=== PATIENT | male | born 1985 | race Caucasian/White ===

== ENCOUNTER 2017-03-09 10:21 | Emergency (ER) | payer BC, OTHER ==
[2017-03-09] MEDS ORDERED: ONDANSETRON 4 MG/2 ML VIAL IVP STA (11:45)
[2017-03-09] MEDS ORDERED: HYDROmorphone 1 MG/ML SYRINGE IVP STA (11:45)
[2017-03-09] MEDS ORDERED: ONDANSETRON 4 MG/2 ML VIAL ONE (11:48)
[2017-03-09] MEDS ORDERED: HYDROmorphone 1 MG/ML SYRINGE ONE (11:48)
== END 2017-03-09 14:31 | disposition home or self-care (01) ==
DX: K52.9 Noninfective gastroenteritis and colitis, unspecified (principal); K57.30 Diverticulosis of large intestine without perforation or abscess without bleeding; R16.2 Hepatomegaly with splenomegaly, not elsewhere classified; K21.9 Gastro-esophageal reflux disease without esophagitis; K25.9 Gastric ulcer, unspecified as acute or chronic, without hemorrhage or perforation; F32.9 Major depressive disorder, single episode, unspecified; Z87.891 Personal history of nicotine dependence
CPT/HCPCS: 36415; 74176; 80053; 81003; 83690; 85027; 96374; 96375; 99283; 99284; J1170

== ENCOUNTER 2017-08-21 23:21 | Emergency (ER) | payer BC ==
[2017-08-21 23:28] VITALS: BP 137/80
--- NOTE | 2017-08-22 00:36 | ED Physician Documentation ---
PD HPI FEVER - Stated complaint Stated Complaint: FEVER - Chief complaint Chief Complaint: Fever - History obtained from History obtained from: Patient - History of Present Illness Timing - onset: How many days ago (3) Timing duration: Days Timing details: Abrupt onset, Waxing and waning Associated symptoms: Chills, Sweats. No: Ear pain, Nasal congestion, Rhinorrhea , Sore throat, Dry cough, Productive cough, Dyspnea, Abdominal pain, NVD Recently seen: Not recently seen - Additional information Additional information: fever x three days, Tmax 105.6. frontal MORALES, generalized myalgias and malaise Review of Systems Constitutional: reports: Fever, Chills, Myalgias, Sweats Nose: reports: Reviewed and negative Throat: denies: Sore throat Respiratory: reports: Reviewed and negative GI: reports: Reviewed and negative Skin: denies: Rash PD PAST MEDICAL HISTORY - Past Medical History Past Medical History: Yes Cardiovascular: None Respiratory: None Neuro: None Endocrine/Autoimmune: None GI: GERD, Ulcers : None HEENT: None Psych: None, Depression Musculoskeletal: None Derm: None - Past Surgical History Past Surgical History: Yes General: Colonoscopy, EGD Ortho: Other - Present Medications Home Medications: Ambulatory Orders Medication Instructions Recorded Confirmed Anti-Depresant 1 tab PO DAILY 03/09/17 Ondansetron Odt [Zofran] 4 mg TL Q6H PRN #10 tablet 03/09/17 - Allergies Allergies/Adverse Reactions: Allergies Allergy/AdvReac Type Severity Reaction Status Date / Time azithromycin [From Zithromax] Allergy Mild Hives Verified 08/21/17 23:28 guaifenesin [From Mucinex] Allergy Mild Hives Verified 08/21/17 23:28 - Social History Does the pt smoke?: No Smoking Status: Never smoker Does the pt drink ETOH?: No Does the pt have substance abuse?: No - Immunizations Immunizations are current?: No Immunizations: TDAP current <10years - POLST Patient has POLST: No PD ED PE NORMAL - Vitals Vital signs reviewed: Yes - General General: Alert and oriented X 3, No acute distress, Well developed/nourished - HEENT HEENT: Ears normal, Moist mucous membranes, Pharynx benign - Neck Neck: Supple, no meningeal sign - Cardiac Cardiac: RRR, No murmur - Respiratory Respiratory: No respiratory distress, Clear bilaterally - Abdomen Abdomen: Soft, Non tender - Derm Derm: Normal color, Warm and dry, No rash Results - Vitals Vitals: Oxygen O2 Source Room air PD MEDICAL DECISION MAKING - ED course Complexity details: considered differential, d/w patient Departure - Departure Disposition: 01 Home, Self Care Clinical Impression: Febrile disorder Condition: Good Instructions: ED Fever Control, ED Viral Syndrome Comments: I suspect you might have influenza. However, as we discussed, we did not test you for this tonight because even if the result were positive, by CDC (Center for Disease Control) recommendations, you would not benefit from anti-influenza medication; you are as likely to get better without this medication. Please return if you get worse. Discharge Date/Time: 08/22/17 00:55
== END 2017-08-22 00:55 | disposition home or self-care (01) ==
LOC: ED 23:21
DX: R50.9 Fever, unspecified (principal); K21.9 Gastro-esophageal reflux disease without esophagitis; Z87.11 Personal history of peptic ulcer disease
CPT/HCPCS: 99282; 99283

== ENCOUNTER 2019-10-08 08:35 | Outpatient (CLI) | payer BC ==
[2019-10-08 15:20] LABS: BASOPHILS # (AUTO) 0.1 10^3/uL (0.0-0.1); BASOPHILS % (AUTO) 1.2 %; EOSINOPHILS % (AUTO) 0.6 %; LYMPHOCYTES # (AUTO) 1.5 10^3/uL (1.5-3.5); LYMPHOCYTES % (AUTO) 28.4 %; MEAN CORPUSCULAR HEMOGLOBIN 32.5 pg (27.0-31.0); MEAN CORPUSCULAR VOLUME 92.7 fL (80.0-94.0); MEAN PLATELET VOLUME 10.9 fL (7.4-11.4); MONOCYTES # (AUTO) 0.4 10^3/uL (0.0-1.0); MONOCYTES % (AUTO) 6.9 %; NEUTROPHILS # (AUTO) 3.2 10^3/uL (1.5-6.6); NEUTROPHILS % (AUTO) 62.7 %; PLT - PLATELET COUNT 190 10^3/uL (130-450); RED BLOOD COUNT 4.93 10^6/uL (4.70-6.10); RED CELL DISTRIBUTION WIDTH 12.1 % (12.0-15.0); WHITE BLOOD COUNT 5.1 x10^3/uL (4.8-10.8)
[2019-10-08 16:01] LABS: ALBUMIN 4.7 g/dL (3.2-5.5); ALBUMIN/GLOBULIN RATIO 1.8 (1.0-2.2); ALKALINE PHOSPHATASE 66 IU/L (42-121); ALT ALANINE AMINOTRANSFERASE 21 IU/L (10-60); AST ASPARTATE AMINOTRANSFERASE 20 IU/L (10-42); BILIRUBIN,TOTAL 0.6 mg/dL (0.2-1.0); BUN - BLOOD UREA NITROGEN 13 mg/dL (6-20); CALCIUM 9.3 mg/dL (8.5-10.3); CARBON DIOXIDE - CO2 28 mmol/L (21-32); CHLORIDE 104 mmol/L (101-111); CHOL/HDL RATIO 4.2 (<5.0); CHOLESTEROL 181 mg/dL; CREATININE 0.7 mg/dL (0.6-1.2); GFR - MDRD 131 (>89); GLUCOSE 87 mg/dL (70-100); HDL CHOLESTEROL 43 mg/dL; LDL CHOLESTEROL,CALCULATED 97 mg/dL; LDL/HDL RATIO 2.3 (<3.6); SODIUM 139 mmol/L (135-145); TOTAL PROTEIN 7.3 g/dL (6.7-8.2); URIC ACID 6.6 mg/dL (2.6-7.2); VLDL CHOLESTEROL 41 mg/dL
[2019-10-08 16:09] LABS: CRP - C-REACTIVE PROTEIN < 1.0 mg/dL (0-1.0)
[2019-10-08 20:00] LABS: RHEUMATOID FACTOR NEGATIVE (Negative)
[2019-10-10 11:22] LABS: ANA SCREEN NEGATIVE (NEGATIVE)
== END 2019-10-08 23:59 | disposition home or self-care (01) ==
LOC: LAB.WCP 08:35
PROVIDERS: ATTEND Physician Assistant Medical
DX: Z00.00 Encounter for general adult medical examination without abnormal findings (principal); M25.50 Pain in unspecified joint
CPT/HCPCS: 36415; 80053; 80061; 83721; 84443; 84550; 85025; 85651; 86038; 86140; 86200; 86430

== ENCOUNTER 2020-09-22 18:46 | Emergency (ER) | payer OTHER ==
--- NOTE | 2020-09-22 19:54 | XRAY Report ---
PROCEDURE: Ribs w/PA Chest LT INDICATIONS: L rib pain after hitting a storage container at wo TECHNIQUE: 2 views of the left ribs were acquired, along with a single view chest. COMPARISON: Chest radiographs 04/07/2013 FINDINGS: Surgical changes and devices: None. Bones and chest wall: No acute displaced fractures or dislocations. No suspicious bony lesions. Ov erlying soft tissues appear unremarkable. Lungs and pleura: No pleural effusions or pneumothorax. Lungs appear clear. Mediastinum: Mediastinal contours appear normal. Heart size is normal. IMPRESSION: No acute displaced rib fracture. No pleural effusion or pneumothorax. Reviewed by: Salomon Al MD on 09/22/2020 7:53 PM PST Approved by: Salomon Al MD on 09/22/2020 7:53 PM PST Station ID: [id number]
--- NOTE | 2020-09-22 20:10 | ED Physician Documentation ---
History of Present Illness - Stated complaint Stated Complaint: LT RIB INJ - Chief complaint Chief Complaint: Trauma Ch/Bk - History obtained from History obtained from: Patient - History of Present Illness Timing: How many days ago (8) Pain level max: 5 Pain level now: 5 - Additonal information Additional information: 35-year-old male presents the emergency department stating that he injured his left ribs at work approximately 8 days ago. Worse with movement, better with rest. Motrin and Tylenol offering little relief. No cough. No fevers. Review of Systems Constitutional: denies: Fever, Chills GI: denies: Vomiting, Diarrhea Skin: denies: Rash Musculoskeletal: denies: Neck pain, Back pain Neurologic: denies: Headache PD PAST MEDICAL HISTORY - Past Medical History Cardiovascular: None Respiratory: None Endocrine/Autoimmune: None GI: GERD, Ulcers : None HEENT: None Psych: None, Depression Musculoskeletal: None Derm: None - Past Surgical History Past Surgical History: Yes General: Colonoscopy, EGD Ortho: Other - Present Medications Home Medications: Ambulatory Orders Medication Instructions Recorded Confirmed Anti-Depresant 1 tab PO DAILY 03/09/17 Ondansetron Odt [Zofran] 4 mg TL Q6H PRN #10 tablet 03/09/17 HYDROcod/ACETAM 5/325 [[place] 5/325] 1 - 2 ea PO Q6H PRN #14 tablet 09/22/20 Ibuprofen [Motrin] 800 mg PO Q8H PRN #30 tablet 09/22/20 Lidocaine Patch 5% [Lidoderm Patch] 1 patch TOP DAILY PRN #10 patch 09/22/20 - Allergies Allergies/Adverse Reactions: Allergies Allergy/AdvReac Type Severity Reaction Status Date / Time azithromycin [From Zithromax] Allergy Mild Hives Verified 09/22/20 18:50 guaifenesin [From Mucinex] Allergy Mild Hives Verified 09/22/20 18:50 - Social History Does the pt smoke?: No Smoking Status: Never smoker Does the pt drink ETOH?: No Does the pt have substance abuse?: No - Immunizations Immunizations are current?: No Immunizations: TDAP current <10years - POLST Patient has POLST: No PD ED PE NORMAL - Vitals Vital signs reviewed: Yes - General General: Alert and oriented X 3, No acute distress - HEENT HEENT: Moist mucous membranes - Neck Neck: Supple, no meningeal sign - Cardiac Cardiac: RRR - Respiratory Respiratory: No respiratory distress, Clear bilaterally - Abdomen Abdomen: Soft, Non tender, Non distended - Derm Derm: Warm and dry - Neuro Neuro: Alert and oriented X 3 - Psych Psych: Normal mood, Normal affect - Free text exam Free text exam: Tender to palpation over the left ribs, midaxillary line, approximately ribs 4 through 7. Also tender to palpation over the anterior aspect of the ribs, costochondral junction, approximately ribs 5 through 7. No swelling. No ecchymosis. No crepitus Results - Vitals Vitals: Vital Signs - 24 hr 09/22/20 09/22/20 18:50 20:25 Temperature 36.6 C 36.7 C Heart Rate 100 70 Respiratory 16 14 Rate Blood Pressure 140/100 H 138/97 H O2 Saturation 98 97 Oxygen O2 Source Room air - Rads (name of study) L ribs xray Radiology: Prelim report reviewed, EMP read contemporaneously, See rad report (no displaced rib fracture. no ptx) PD MEDICAL DECISION MAKING - ED course Complexity details: reviewed results, re-evaluated patient, considered differential, d/w patient ED course: 35-year-old male presents to the emergency department with what appear to be rib contusions after a work injury approximately 8 days ago. No acute findings on x-ray. We will place on Lidoderm patches and prescribe pain medication for home. Patient counseled regarding signs and symptoms for which I believe and urgent re-evaluation would be necessary. Patient with good understanding of and agreement to plan and is comfortable going home at this time This document was made in part using voice recognition software. While efforts are made to proofread this document, sound alike and grammatical errors may occur. Departure - Departure Disposition: 01 Home, Self Care Clinical Impression: Contusion of rib on left side Qualifiers: Encounter type: initial encounter Qualified Code(s): S20.212A - Contusion of left front wall of thorax, initial encounter Condition: Good Instructions: ED Contusion Rib Follow-Up: Kassi Burciaga PA-C [Primary Care Provider] - Within 1 week Prescriptions: Lidocaine Patch 5% [Lidoderm Patch] 1 patch TOP DAILY PRN #10 patch PRN Reason: pain Ibuprofen [Motrin] 800 mg PO Q8H PRN #30 tablet PRN Reason: PAIN &/OR FEVER HYDROcod/ACETAM 5/325 [[place] 5/325] 1 - 2 ea PO Q6H PRN #14 tablet PRN Reason: Pain Comments: Your x-ray does not show any fractures today. Follow-up with your doctor for further care. Return if you worsen. Do not drink alcohol or drive while on narcotic pain medicine. Note that many narcotic pain relievers also contain tylenol/acetaminophen. Please ensure that your total dose of acetaminophen from all sources does not exceed 3 grams (3000mg) per day. You may constipated on this medication, take a stool softener such as "Colace" twice a day while you are on it. Also recommend a zmrn-nym-hortopq laxative such as senna or MiraLAX any day that you do not have a bowel movement. If you received narcotic pain medication in the emergency department, do not drive or operate machinery for the next 24 hours. Discharge Date/Time: 09/22/20 20:25
[2020-09-22] MEDS ORDERED: LIDOCAINE PATCH 5% TOP STA (20:11)
[2020-09-22 20:32] VITALS: BP 138/97
== END 2020-09-22 20:25 | disposition home or self-care (01) ==
LOC: ED 18:46
DX: S20.212A Contusion of left front wall of thorax, initial encounter (principal); W20.8XXA Other cause of strike by thrown, projected or falling object, initial encounter; Y93.89 Activity, other specified; Y99.0 Civilian activity done for income or pay
CPT/HCPCS: 71101; 99283; 99284; A9270

== ENCOUNTER 2020-12-25 09:12 | Outpatient (CLI) | payer OTHER ==
--- NOTE | 2020-12-25 10:08 | XRAY Report ---
PROCEDURE: Knee 3 View RT INDICATIONS: KNEE PAIN,RIGHT TECHNIQUE: 3 views of the right knee(s) were acquired. COMPARISON: None. FINDINGS: Bones: No fractures or dislocations. No suspicious bony lesions. Soft tissues: No joint effusion. No suspicious soft tissue calcifications. IMPRESSION: No acute fracture. No osseous lesion. If symptoms and/or clinical suspicion for patholog y continue, further assessment with repeat plain films, or advanced imaging (e.g., CT, MRI, or bone s can) is recommended for further assessment. Reviewed by: Srini Small MD on 12/25/2020 10:07 AM [facility] Approved by: Srini Small MD on 12/25/2020 10:07 AM PST Station ID: [id number]
== END 2020-12-25 09:13 | disposition home or self-care (01) ==
LOC: DI 09:12
PROVIDERS: ATTEND Physician Assistant Medical
DX: M25.561 Pain in right knee (principal)

== ENCOUNTER 2021-06-05 12:34 | Outpatient (CLI) | payer OTHER ==
[2021-06-05 13:07] LABS: BASOPHILS # (AUTO) 0.1 10^3/uL (0.0-0.1); BASOPHILS % (AUTO) 0.9 %; EOSINOPHILS % (AUTO) 0.3 %; HCT - HEMATOCRIT 45.2 % (42.0-52.0); HGB - HEMOGLOBIN 16.7 g/dL (14.0-18.0); LYMPHOCYTES # (AUTO) 1.5 10^3/uL (1.5-3.5); LYMPHOCYTES % (AUTO) 23.3 %; MEAN CORPUSCULAR HEMOGLOBIN 32.8 pg (27.0-31.0); MEAN CORPUSCULAR HGB CONC 36.9 g/dL (32.0-36.0); MEAN CORPUSCULAR VOLUME 88.8 fL (80.0-94.0); MEAN PLATELET VOLUME 11.2 fL (7.4-11.4); MONOCYTES # (AUTO) 0.3 10^3/uL (0.0-1.0); MONOCYTES % (AUTO) 5.2 %; NEUTROPHILS # (AUTO) 4.5 10^3/uL (1.5-6.6); NEUTROPHILS % (AUTO) 69.8 %; PLT - PLATELET COUNT 185 10^3/uL (130-450); RED BLOOD COUNT 5.09 10^6/uL (4.70-6.10); RED CELL DISTRIBUTION WIDTH 11.2 % (12.0-15.0); WHITE BLOOD COUNT 6.5 x10^3/uL (4.8-10.8)
[2021-06-05 13:15] LABS: ALBUMIN/GLOBULIN RATIO 1.8 (1.0-2.2); ALKALINE PHOSPHATASE 85 IU/L (42-121); ALT ALANINE AMINOTRANSFERASE 51 IU/L (10-60); AST ASPARTATE AMINOTRANSFERASE 28 IU/L (10-42); BILIRUBIN,TOTAL 0.9 mg/dL (0.2-1.0); BUN - BLOOD UREA NITROGEN 12 mg/dL (6-20); CALCIUM 9.7 mg/dL (8.5-10.3); CARBON DIOXIDE - CO2 25 mmol/L (21-32); CHLORIDE 101 mmol/L (101-111); CHOL/HDL RATIO 5.2 (<5.0); CHOLESTEROL 228 mg/dL; CREATININE 0.8 mg/dL (0.6-1.2); GFR - MDRD 111 (>89); GLUCOSE 95 mg/dL (70-100); HDL CHOLESTEROL 44 mg/dL; LDL CHOLESTEROL,CALCULATED 137 mg/dL; LDL/HDL RATIO 3.1 (<3.6); POTASSIUM 3.7 mmol/L (3.5-5.0); SODIUM 138 mmol/L (135-145); TOTAL PROTEIN 7.8 g/dL (6.7-8.2); TRIGLYCERIDES 235 mg/dL; VLDL CHOLESTEROL 47 mg/dL
[2021-06-05 13:16] LABS: CRP - C-REACTIVE PROTEIN < 1.0 mg/dL (0-1.0)
[2021-06-05 13:17] LABS: CREATINE KINASE MB 1.3 ng/mL (0.6-6.3)
[2021-06-05 13:19] LABS: TROPONIN I HIGH SENSITIVITY 2.8 ng/L (2.3-19.7)
[2021-06-05 13:27] LABS: THYROID STIMULATING HORMONE 1.26 uIU/mL (0.34-5.60)
== END 2021-06-05 12:35 | disposition home or self-care (01) ==
LOC: LAB 12:34
PROVIDERS: ATTEND Physician Assistant Medical
DX: R07.9 Chest pain, unspecified (principal)
CPT/HCPCS: 36415; 80053; 80061; 82553; 83721; 84443; 84484; 85025; 85379; 85651; 86140

== ENCOUNTER 2021-06-05 12:54 | Outpatient (CLI) | payer OTHER ==
--- NOTE | 2021-06-05 14:32 | XRAY Report ---
PROCEDURE: Chest 2 View X-Ray INDICATIONS: CHEST PAIN TECHNIQUE: 2 view(s) of the chest. COMPARISON: None. FINDINGS: Surgical changes and devices: None. Lungs and pleura: No pleural effusions or pneumothorax. Lungs are clear. Mediastinum: Mediastinal contours are normal. Heart size is normal. Bones and chest wall: No suspicious bony abnormalities. Soft tissues appear unremarkable. IMPRESSION: 1. No acute cardiopulmonary disease. Reviewed by: Cyrus Omer MD on 06/05/2021 2:30 PM PDT Approved by: Cyrus Omer MD on 06/05/2021 2:30 PM PDT Station ID: [id number]
== END 2021-06-05 12:55 | disposition home or self-care (01) ==
LOC: DI 12:54
PROVIDERS: ATTEND Physician Assistant Medical
DX: R07.9 Chest pain, unspecified (principal)
CPT/HCPCS: 36415; 80053; 80061; 82553; 83721; 84443; 84484; 85025; 85379; 85651; 86140

== ENCOUNTER 2021-06-25 12:33 | Outpatient (CLI) | payer OTHER ==
[2021-06-25 13:25] VITALS: BP 126/81
--- NOTE | 2021-06-25 13:25 | SLEEP CARE CONSULTATION ---
Information from patient questionnaire entered by Shannon Love. I have reviewed and concur with the information entered by Shannon Love. This document represents the service I personally performed and the decisions made by me, Marta Vital ARNP. History of Present Illness Service Date and Time: 06/25/2021 1233 Reason for Visit: New patient Chief Complaint: reports: Unrefreshed sleep, Snoring, Excessive daytime sleepiness, Observed pauses in breathing, Fatigue Date of Onset: 2 years Usual bedtime: 9 pm Time it takes to fall asleep: 10-60 minutes Snores at night: Yes Observed to quit breathing while asleep: Yes Sleeps alone due to snoring: No Number of times waking at night: 1-3 Reasons for waking at night: reports: Gasping for air, Bathroom Toss, Turn, or Twitch while sleeping: Yes Recalls having dreams: Yes Usually gets out of bed at: 3 - 7 am Feels refreshed in the morning: No Morning headache: Yes (resolved in 1-2 hours; 3-4 days a week at temples/eyes hurt too) Sleepy or fatigued during the day: Yes Ever fallen asleep while driving: No Takes day naps: No Dreams during day naps: Yes Prior sleep studies: No Additional HPI information: I had the pleasure of seeing ERIK GRADY today regarding the possibility of him having a sleep disorder. His current complaints are unrefreshed sleep, observed pauses in breathing, excessive daytime sleepiness and fatigue. He doesn't ever feel rested. It has been going on for years. He hears some times himself choking when going to sleep. He has woken up gasping. He has had multiple dreams of choking and will wake up gasping. He thinks he snores because sometimes his palate is sore and dry when he wakes up in the morning. He has had others tell him he stops breathing at night when asleep. His father has sleep apnea and is on a PAP device. 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 Patient is and lives in [place]. Have you smoked in the past 12 months: No Cigarettes per day (20/pack): 0 (vape) Alcohol use: Yes Alcohol amount and frequency: 1-2 drinks 3-4 night a week Caffeine use: Yes Caffeine amount and frequency: 20 oz daily Family History Family history of sleep disordered breathing: Yes Family Hx Sleep Apnea: Mother: Snoring, Father: Snoring, Sleep apnea - Treated, Sibling: Snoring Allergies and Home Medications Drug allergies reviewed: Yes (azithromycin, guaifenesin, gabapentin) Home medication list reviewed: Yes Allergy and home medication list: Lyrica Multivitamin Probiotic Pepcid Omeprazole Tylenol arthritis as needed Review of Systems Weight gain over past 5 years: 30 Cardiovascular: reports: have to sleep sitting up, other (non frequent chest pains) Respiratory: reports: shortness of breath (when falling asleep) Gastrointestinal: reports: heartburn, abdominal pain Neurological: reports: seizure (as an infant) Psychiatric: denies: anxiety, depression Ear/Nose/Throat: denies: injury to nose, tonsillectomy Musculoskeletal: reports: joint pain Immunologic: reports: allergies to food or environment (seasonal) Physical Exam Blood Pressure: 126/81 Cuff size: wrist Heart Rate: 71 O2 Saturation: 97 Height: 5 ft 11 in Weight: 209 lb Body Mass Index: 29.1 BMI Classification: Overweight Neck circumference: 15.5 (inches) Mouth and throat: narrow oropharynx Soft palate: normal Hard palate: normal Uvula: normal Uvula visualization: 100% Mallampati Class I Tongue: enlarged in size with teeth lafleur on lateral edges Tonsils: small Neck: normal w/o lymphadenopathy or thyromegaly Heart: regular rate and rhythm Lungs: clear bilaterally Impression and Plan 1. Suspected Obstructive Sleep Apnea-Hypopnea Syndrome, as suggested by a history of loud and irregular snoring, observed cessation of breath while asleep, gasping or choking in sleep, morning headache, unrefreshed sleep, and excessive daytime sleepiness. Narrow oropharynx and obesity are common predisposing factors for obstructive sleep apnea-hypopnea syndrome. I recommend proceeding to polysomnography to confirm the diagnosis and to assess severity. If the patient has significant sleep disordered breathing, a manual CPAP titration study will also be performed to find the optimal treatment pressure. I informed the patient of what the sleep studies involve and after some discussion, obtained agreement to proceed. The pathophysiology of obstructive sleep apnea-hypopnea syndrome was discussed with the patient and health risks of cardiovascular and cerebrovascular disease if not treated. AAS brochure for obstructive sleep apnea-hypopnea syndrome given and reviewed. Risks of drowsy driving discussed in detail and patient advised to avoid long distance driving and to pull up hand at the first sign of drowsiness. Patient agreed to plan. * Schedule polysomnography +- manual CPAP titration study and return in 1-2 weeks after the study to discuss result and initiate therapy. * Avoid long distance driving or driving when feeling sleepy. * Avoid alcohol, sedative and muscle relaxant around bedtime. * Attempt to lose weight. * Review instructions provided by trained office staff on how to prepare for the sleep study. * Return for follow-up after sleep study completed. Counseling Topics: Weight loss health impact Visit Type: In Office Time Spent with Patient (minutes): 30 Provider Statement: I spent 100% of the Face to Face Visit with the patient with greater than 50% spent counseling the patient and coordination of care.
== END 2021-06-25 12:34 | disposition home or self-care (01) ==
LOC: SC 12:33
PROVIDERS: ATTEND Nurse Practitioner Family
DX: G47.10 Hypersomnia, unspecified (principal); G47.8 Other sleep disorders; R51.9 Headache, unspecified; R06.81 Apnea, not elsewhere classified; R06.83 Snoring
CPT/HCPCS: 99203; 99212

== ENCOUNTER 2021-07-02 09:59 | Outpatient (CLI) | payer OTHER | END 2021-07-02 10:00 | disposition home or self-care (01) | LOC: SC 09:59 | PROVIDERS: ATTEND Nurse Practitioner Family | DX: Z53.9 Procedure and treatment not carried out, unspecified reason (principal) ==

== ENCOUNTER 2021-07-03 09:45 | Outpatient (CLI) | payer OTHER | END 2021-07-03 09:46 | disposition home or self-care (01) | LOC: SC 09:45 | PROVIDERS: ATTEND Nurse Practitioner Family | DX: G47.33 Obstructive sleep apnea (adult) (pediatric) (principal); R09.02 Hypoxemia | CPT/HCPCS: 95806 ==

== ENCOUNTER 2021-07-16 10:51 | Outpatient (CLI) | payer OTHER ==
--- NOTE | 2021-07-16 11:02 | SLEEP CARE CONSULTATION ---
Information from patient questionnaire entered by Shannon Love. I have reviewed and concur with the information entered by Shannon Love. This document represents the service I personally performed and the decisions made by , Marta Vital ARNP. History of Present Illness Service Date and Time: 07/16/2021 1040 Initial [place] Sleepiness Scale score: 10 (in 2020) Current [place] Sleepiness Scale score: 14 Additional HPI information: ERIK GRADY returns for follow up and results of the recently performed home sleep study. I explained the pathophysiology behind obstructive sleep apnea. We then spent quite a bit of time discussing different treatment options. For mild obstructive sleep apnea, surgery and oral appliance are alternatives to nasal CPAP therapy but in moderate or severe cases, nasal CPAP is the most effective and reliable treatment. Because apnea is primarily in supine position, then positional management therapy could be effective. Methods discussed such as positioning with pillows, using a T-shirt with tennis balls in the back, and shown commercial products that have a pillow format on back to prevent supine sleep. I reviewed the impact of weight changes on sleep apnea. AASM patient education PAP tips and Non Pap treatment pamphlets reviewed and given to patient. Patient counseled not drink alcohol less than 4 hours before bedtime as it can increase snoring and apnea. Patient was cautioned about risks of drowsy driving until sleepiness symptoms resolve. Sleep Study - Results Type of Sleep Study: Home sleep study Prior sleep studies: No Polysomnography/Home Sleep Study results: Physician Impression: The quality of the study is good. The length of the study is adequate (> 240 minutes). Please also see the tabulated and graphic data. 1. Obstructive Sleep Apnea-Hypopnea (ICD-10 G47.33), mild, with an AHI of 8.0/hr and jen SaO2 of 74%. During the study, the patient had 33 apneas (33 obstructive, 0 central, 0 mixed) and 14 hypopneas. The longest episode lasted 59.5 seconds. The respiratory events occurred almost exclusively during supine sleep (supine AHI was 11.3 and non-supine, 1.89). 2. Hypoxemia (ICD-10 R09.02), moderate, with the lowest oxygen saturation of 74 % and 13.8 minutes with SaO2 under 90%. Baseline oxygen saturation was normal (Average oxygen saturation was 94%). Allergies and Home Medications Home medication list reviewed: Yes (no changes) Review of Systems Review of systems same as previous: Yes (no changes) Physical Exam Heart Rate: 70 O2 Saturation: 98 Height: 5 ft 11 in Weight: 210 lb Body Mass Index: 29.2 BMI Classification: Overweight Impression and Plan 1. Obstructive Sleep Apnea-Hypopnea Syndrome, mild, with lowest oxygen saturation of 74%. Obviously this is the cause of the patients symptoms of unrefreshed sleep, and excessive daytime sleepiness. Positive pressure therapy could benefit his overall health and reduce cardiovascular and cerebrovascular adverse events. Patient would like to take some time to consider his treatment options that we reviewed thoroughly during his visit. Since patients apnea is primarily in supine position, patient advised to try positional therapy while he is considering options for treatment and he agreed with plan. He is also advised to lose weight as this will reduce snoring and apnea. An oral appliance can also be used for snoring but often is not covered by insurance. Follow up is scheduled for one month to check effectiveness and if further evaluation indicated such a repeat study in supine position only to see if additional treatment indicated. 2. Hypoxemia, moderate, with the lowest oxygen saturation of 74 % and 13.8 minutes with SaO2 under 90%. His baseline oxygen saturation was normal with an average oxygen saturation of 94%. * Positional therapy while considering treatment options. * Attempt to lose weight. * Avoid alcohol consumption near bedtime. * Avoid supine sleep. * The patient is again cautioned about driving until sleepiness completely resolves. * Return in one to two months. I will assess response to therapy at that time. Counseling Topics: Weight loss health impact Visit Type: In Office Time Spent with Patient (minutes): 19 Provider Statement: I spent 100% of the Face to Face Visit with the patient with greater than 50% spent counseling the patient and coordination of care.
== END 2021-07-16 10:52 | disposition home or self-care (01) ==
LOC: SC 10:51
PROVIDERS: ATTEND Nurse Practitioner Family
DX: G47.33 Obstructive sleep apnea (adult) (pediatric) (principal); R09.02 Hypoxemia
CPT/HCPCS: 99212

== ENCOUNTER 2021-07-27 09:29 | Day surgery (SDC) | payer OTHER ==
[2021-07-27] MEDS ORDERED: LACTATED RINGERS 1,000 ML IV ONE (09:36)
--- NOTE | 2021-07-27 10:56 | ANESTHESIA ---
Pre-Anesthesia VS, & Labs - Diagnosis chronic reflux, blood per rectum - Procedure EGD, Colonoscopy Vital Signs: Temp Pulse Resp BP Pulse Ox 36.5 C 64 18 133/84 H 95 07/27/21 09:36 07/27/21 09:36 07/27/21 09:36 07/27/21 09:36 07/27/21 09:36 Height: 5 ft 11 in Weight (kg): 93 kg Body Mass Index: 28.5 BMI Classification: Overweight - NPO >8 hours - Lab Results Lab results reviewed: Yes Home Medications and Allergies Home Medications: Ambulatory Orders Acetaminophen [Tylenol Arthritis] 650 mg PO DAILY 07/24/21 Famotidine [Acid-Pep] 20 mg PO DAILY 07/24/21 Omeprazole 20 mg PO DAILY 07/24/21 Pregabalin [Lyrica] 150 mg PO DAILY 07/24/21 Acetaminophen [Tylenol Arthritis] 650 mg PO DAILY 07/24/21 Famotidine [Acid-Pep] 20 mg PO DAILY 07/24/21 Omeprazole 20 mg PO DAILY 07/24/21 Pregabalin [Lyrica] 150 mg PO DAILY 07/24/21 Allergies/Adverse Reactions: Allergies Allergy/AdvReac Type Severity Reaction Status Date / Time azithromycin [From Zithromax] Allergy Mild Hives Verified 09/22/20 18:50 guaifenesin [From Mucinex] Allergy Mild Hives Verified 09/22/20 18:50 gabapentin Allergy Unknown Verified 07/24/21 13:07 Anes History & Medical History - Anesthetic History Anesthesia Complications: reports: No previous complications Family history of Anesthesia Complications: Denies Family history of Malignant Hyperthermia: Denies - Medical History Cardiovascular: reports: None Pulmonary: reports: Sleep apnea Gastrointestinal: reports: GERD, Ulcers Urinary: reports: None Musculoskeletal: reports: None Endocrine/Autoimmune: reports: None Blood Disorders: reports: None Skin: reports: None Smoking Status: Never smoker - Surgical History General: reports: Colonoscopy, EGD Orthopedic: reports: Other Exam General: Alert, Oriented x3, Cooperative, No acute distress Dental: WNL Mouth Openin Fingerbreadth Neck Mobility: Normal Mallampati classification: II Respiratory: Lungs clear, Normal breath sounds, No respiratory distress, No accessory muscle use Cardiovascular: Regular rate, Normal S1, Normal S2, No murmurs Plan Anesthesia Type: General, Total IV Consent for Procedure(s) Verified and Reviewed: Yes Code Status: Attempt Resuscitation ASA classification: 2-Mild systemic disease Is this case an emergency?: No
[2021-07-27] MEDS ORDERED: PROPOFOL 200 MG/20 ML VIAL IVP ONE (11:59)
[2021-07-27] MEDS ORDERED: LIDOCAINE-PF 2% 10 ML AMP SUBQ ONE (12:00)
[2021-07-27] MEDS ORDERED: LACTATED RINGERS 300 ML IV ONE (13:06)
[2021-07-27 13:49] VITALS: BP 120/84
--- NOTE | 2021-07-27 14:12 | ANESTHESIA POST OP EVALUATION ---
Anesthesia Post Eval - Post Anesthesia Eval Vitals: Last Vital Signs Temp 36.5 C 07/27/21 13:48 Pulse 76 07/27/21 13:48 Resp 18 07/27/21 13:48 BP 120/84 H 07/27/21 13:48 Pulse Ox 96 07/27/21 13:48 CV Function Including HR & BP: Stable Pain Control: Satisfactory Nausea & Vomiting: Negative Mental Status: Baseline Respiratory Status: Airway Patent Hydration Status: Satisfactory Anesthesia Complications: None
== END 2021-07-27 09:30 | disposition home or self-care (01) ==
LOC: SDS 09:29
PROVIDERS: ATTEND Surgery
PROC: 0DBH8ZZ Excision of Cecum, Via Natural or Artificial Opening Endoscopic (ICD-10-PCS; principal; 2021-07-27 10:30)
PROC: 0DB78ZX Excision of Stomach, Pylorus, Via Natural or Artificial Opening Endoscopic, Diagnostic (ICD-10-PCS; 2021-07-27 10:30)
DX: K21.9 Gastro-esophageal reflux disease without esophagitis (principal); K62.5 Hemorrhage of anus and rectum; K29.50 Unspecified chronic gastritis without bleeding; D12.0 Benign neoplasm of cecum; R10.9 Unspecified abdominal pain; R14.0 Abdominal distension (gaseous); F17.210 Nicotine dependence, cigarettes, uncomplicated; G47.30 Sleep apnea, unspecified; F41.8 Other specified anxiety disorders
CPT/HCPCS: 43239; 45380; J7120